=== PATIENT | female | born 1960 | race Caucasian/White ===

== ENCOUNTER → 2017-02-20 | Outpatient (CLI) | payer MEDICAID ==
[~2017-02-20] MED LIST: IBUP-1223 PO; SIMV20TA3 PO
== END | disposition home or self-care (01) ==
LOC: STAR 12:08
PROVIDERS: ATTEND Orthopaedic Surgery
DX: Z02.9 Encounter for administrative examinations, unspecified (principal)

== ENCOUNTER 2017-02-24 08:03 | Day surgery (SDC) | payer MEDICAID ==
[2017-02-20 13:03] VITALS: BP 166/98
[~2017-02-24] VITALS: Ht 172.7 cm; Wt 76.9 kg
[~2017-02-24 08:03] MED LIST changes: +BUPIVACAINE/PF 0.5% ONE; +EPINEPHRINE 1 MG/ML, 1ML ONE; +LIDOCAINE/PF 1.5%-EPI 1:200K, 30ML ONE
[2017-02-24] MEDS ORDERED: BUPIVACAINE/PF-EPI 0.5% 1:200K INFIL ONE (08:12)
[2017-02-24] MEDS ORDERED: LACTATED RINGERS 1,000 ML IV SCH ×2 (08:14→08:26)
[2017-02-24] MEDS ORDERED: BUPIVACAINE/PF 0.5% ONE (09:37)
[2017-02-24] MEDS ORDERED: FENTANYL PF 100 MCG/2ML ONE (09:37)
[2017-02-24] MEDS ORDERED: MIDAZOLAM 1 MG/ML, 2ML ONE (09:37)
[2017-02-24] MEDS ORDERED: DEXAMETHASONE 4 MG/ML, 1ML ONE (09:52)
[2017-02-24] MEDS ORDERED: CEFAZOLIN 1,000 MG ONE (09:52)
[2017-02-24] MEDS ORDERED: PROPOFOL 10 MG/ML, 20ML ONE (09:52)
[2017-02-24] MEDS ORDERED: ONDANSETRON 2MG/ML, 2ML ONE (09:52)
[2017-02-24] MEDS ORDERED: MIDAZOLAM 1 MG/ML, 2ML IV PRN (10:30)
[2017-02-24] MEDS ORDERED: ACETAMINOPHEN 325 MG TABLET PO PRN (10:30)
[2017-02-24] MEDS ORDERED: FENTANYL PF 100 MCG/2ML IV PRN (10:30)
[2017-02-24] MEDS ORDERED: OXYcodone 5 MG/5 ML ORAL.SOL UDC PO PRN (10:30)
[2017-02-24] MEDS ORDERED: ALBUTEROL SULFATE 2.5 MG/3 ML NPPB PRN (10:30)
[2017-02-24] MEDS ORDERED: hydrALAzine 20 MG/ML, 1ML IV PRN (10:30)
[2017-02-24] MEDS ORDERED: METOPROLOL 1 MG/ML, 5ML IV PRN (10:30)
[2017-02-24] MEDS ORDERED: MEPERIDINE/PF 25MG/0.5ML IVPush PRN (10:30)
[2017-02-24] MEDS ORDERED: PROMETHAZINE 25 MG/ML, 1ML IV PRN (10:30)
[2017-02-24] MEDS ORDERED: ACETAMINOPHEN 325 MG TABLET ONE (11:55)
[2017-02-24] MEDS ORDERED: HYDROmorphone 2 MG/ML, 1ML ONE (11:55)
[2017-02-24] MEDS ORDERED: ACETAMINOPHEN 650 MG/20.3 ML UDC ONE (11:55)
[2017-02-24] MEDS ORDERED: OXYcodone 5 MG/5 ML ORAL.SOL UDC ONE (11:56)
[2017-02-24] MEDS: HYDROmorphone 1 MG/ML, 1ML IV PRN ×4 (12:00→12:28)
[2017-02-24] MEDS ORDERED: KETOROLAC 30 MG/1 ML ONE (13:52)
[2017-02-24] MEDS ORDERED: HYDROmorphone 1 MG/ML, 1ML IM PRN (14:00)
[2017-02-24] MEDS ORDERED: KETOROLAC 30 MG/1 ML IVPush PRN (14:00)
== END 2017-02-24 14:25 ==
LOC: OUT 08:03
PROVIDERS: ATTEND Orthopaedic Surgery
DX: S83.512A Sprain of anterior cruciate ligament of left knee, initial encounter (principal); S83.412A Sprain of medial collateral ligament of left knee, initial encounter; X58.XXXA Exposure to other specified factors, initial encounter; Y93.89 Activity, other specified; Y92.89 Other specified places as the place of occurrence of the external cause; Y99.8 Other external cause status; M65.862 Other synovitis and tenosynovitis, left lower leg; K21.9 Gastro-esophageal reflux disease without esophagitis
CPT/HCPCS: 27405; 27407; 73560; 76000; C1713; C1762; J0171; J0690; J1100; J1170; J1885; J2250; J2405; J2704; J3010; J3490; J7120

== ENCOUNTER 2018-10-18 15:15 | Emergency (ER) | payer MEDICAID ==
[~2018-10-18] VITALS: Ht 172.7 cm; Wt 83.0 kg
[~2018-10-18 15:15] MED LIST changes: -BUPIVACAINE/PF 0.5% ONE; -EPINEPHRINE 1 MG/ML, 1ML ONE; -LIDOCAINE/PF 1.5%-EPI 1:200K, 30ML ONE
[2018-10-18 15:21] VITALS: BP 119/84
[2018-10-18] MEDS ORDERED: DIPH,PERTUSS(ACELL),TET VAC/PF 0.5 ML IM-VACC ONE ×2 (15:30→16:44)
[2018-10-18] MEDS ORDERED: LIDOCAINE-MPF 1%, 5ML INFIL ONE (15:30)
[2018-10-18] MEDS ORDERED: LIDOCAINE-MPF 1%, 5ML ONE ×2 (15:33→16:41)
[2018-10-18] MEDS ORDERED: BACITRACIN ZINC OINT 500U/GM, 0.9 GM ONE (16:59)
== END 2018-10-18 17:09 | disposition home or self-care (01) ==
LOC: ED 16:55
DX: S06.0X0A Concussion without loss of consciousness, initial encounter (principal); S01.81XA Laceration without foreign body of other part of head, initial encounter; S80.211A Abrasion, right knee, initial encounter; W01.0XXA Fall on same level from slipping, tripping and stumbling without subsequent striking against object, initial encounter; Y93.01 Activity, walking, marching and hiking; Y92.830 Public park as the place of occurrence of the external cause; Y99.8 Other external cause status
CPT/HCPCS: 12013; 70450; 70486; 72125; 90471; 90715

== ENCOUNTER 2018-10-24 13:34 | Emergency (ER) | payer MEDICAID ==
[~2018-10-24] VITALS: Ht 172.7 cm; Wt 84.3 kg
[2018-10-24 13:47] VITALS: BP 185/101
== END 2018-10-24 14:08 | disposition home or self-care (01) ==
LOC: ED 13:40
DX: S01.81XD Laceration without foreign body of other part of head, subsequent encounter (principal); X58.XXXD Exposure to other specified factors, subsequent encounter
CPT/HCPCS: 99281